=== PATIENT | female | born 1975 | race Caucasian/White ===

== ENCOUNTER 2017-04-07 18:58 | Emergency (ER) | payer BC, MEDICAID, OTHER ==
[2017-04-07 20:00] LABS: INFLUENZA A NEGATIVE (NEGATIVE); INFLUENZA B NEGATIVE (NEGATIVE)
--- NOTE | 2017-04-07 20:06 | Emergency Department Record ---
History of Present Illness - General Chief Complaint: Cough Stated Complaint: COUGH,FEVER Time Seen by Provider: 04/07/17 19:40 Source: Patient Mode of Arrival: Ambulatory Limitations: No limitations - History of Present Illness Initial Comments: pt has productive green cough and is running fevers. pt was expoised to the flu MD Complaint: Cough, Fever, Sore throat Onset/Timin -: Days(s) Severity: Moderate Consistency: Constant Improves With: Nothing Worsens With: Nothing Context: Sick contacts Associated Symptoms: Cough, Fever, Nasal congestion, Sore throat Treatments Prior to Arrival: Acetaminophen - Related Data Previous Rx's Medication Instructions Recorded Azithromycin [Zithromax] 250 mg PO DAILY #4 tab 04/07/17 Allergies Allergy/AdvReac Type Severity Reaction Status Date / Time No Known Drug Allergies Allergy Verified 06/16/15 06:57 Travel Screening - Travel/Exposure Within Last 30 Days Have you traveled within the last 30 days?: No - Travel Symptoms Symptom Screening: None Review of Systems Reviewed: No additional complaints except as noted below Constitutional: Reports: As per HPI. Denies: Chills, Fever, Malaise, Night sweats, Weakness, Weight change Eyes: Reports: As per HPI. Denies: Eye discharge, Eye pain, Photophobia, Vision change ENT: Reports: As per HPI, Congestion. Denies: Dental pain, Ear pain, Epistaxis , Hearing loss, Throat pain Respiratory: Reports: As per HPI, Cough. Denies: Dyspnea, Hemoptysis, Stridor, Wheezes Cardiovascular: Reports: As per HPI. Denies: Arrhythmia, Chest pain, Dyspnea on exertion, Edema, Murmurs, Orthopnea, Palpitations, Paroxysmal nocturnal dyspnea, Rheumatic Fever, Syncope Endocrine: Reports: As per HPI. Denies: Fatigue, Heat or cold intolerance, Polydipsia, Polyuria Gastrointestinal: Reports: As per HPI. Denies: Abdominal pain, Constipation, Diarrhea, Hematemesis, Hematochezia, Melena, Nausea, Vomiting Genitourinary: Reports: As per HPI. Denies: Abnormal menses, Discharge, Dyspareunia, Dysuria, Frequency, Hematuria, Incontinence, Retention, Urgency Musculoskeletal: Reports: As per HPI. Denies: Arthralgia, Back pain, Gout, Joint swelling, Myalgia, Neck pain Skin: Reports: As per HPI. Denies: Bruising, Change in color, Change in hair/ nails, Lesions, Pruritus, Rash Neurological: Reports: As per HPI. Denies: Abnormal gait, Confusion, Headache, Numbness, Paresthesias, Seizure, Tingling, Tremors, Vertigo, Weakness Psychiatric: Reports: As per HPI. Denies: Anxiety, Auditory hallucinations, Depression, Homicidal thoughts, Suicidal thoughts, Visual hallucinations Hematological/Lymphatic: Reports: As per HPI. Denies: Anemia, Blood Clots, Easy bleeding, Easy bruising, Swollen glands Past Medical History - SOCIAL HISTORY Smoking Status: Never smoker Alcohol Use: None Drug Use: None - RESPIRATORY Hx Respiratory Disorders: No - CARDIOVASCULAR Hx Cardio Disorders: No - NEURO Hx Neuro Disorders: No - GI Hx GI Disorders: No - Hx Genitourinary Disorders: No - ENDOCRINE Hx Endocrine Disorders: No - MUSCULOSKELETAL Hx Musculoskeletal Disorders: No - PSYCH Hx Psych Problems: No - HEMATOLOGY/ONCOLOGY Hx Hematology/Oncology Disorders: No Family Medical History Any Significant Family History?: No Physical Exam - General General Appearance: Alert, Oriented x3, Cooperative, Mild distress - Head Head exam: Normal inspection - Eye Eye exam: Normal appearance, PERRL, EOMI Pupils: Normal accommodation - ENT ENT exam: Normal exam, Mucous membranes moist, Normal external ear exam, Normal orophraynx Ear exam: Normal external inspection. negative: External canal tenderness Nasal Exam: Normal inspection. negative: Discharge, Sinus tenderness Mouth exam: Normal external inspection, Tongue normal Teeth exam: Normal inspection. negative: Dental caries Throat exam: Tonsillar erythema. negative: Tonsillar exudate - Neck Neck exam: Normal inspection, Full ROM. negative: Tenderness - Respiratory Respiratory exam: Normal lung sounds bilaterally. negative: Respiratory distress - Cardiovascular Cardiovascular Exam: Regular rate, Normal rhythm, Normal heart sounds - GI/Abdominal GI/Abdominal exam: Soft, Normal bowel sounds. negative: Tenderness - Rectal Rectal exam: Deferred - exam: Deferred - Extremities Extremities exam: Normal inspection, Full ROM, Normal capillary refill. negative: Tenderness - Back Back exam: Reports: Normal inspection, Full ROM. Denies: Muscle spasm, Rash noted, Tenderness - Neurological Neurological exam: Alert, CN II-XII intact, Normal gait, Oriented X3 - Psychiatric Psychiatric exam: Normal affect, Normal mood - Skin Skin exam: Dry, Intact, Normal color, Warm Course Vital Signs 04/07/17 19:08 Temperature 98.6 F Pulse Rate [ 72 Pulse Ox Probe] Respiratory 20 Rate Blood Pressure 140/115 [Right Arm] Pulse Ox 100 Medical Decision Making - Lab Data Lab Results 04/07/17 Range/Units 19:44 Influenza Type A Ag Negative (NEGATIVE) Influenza Type B Ag Negative (NEGATIVE) Disposition Disposition: Discharge Clinical Impression: Bronchitis Disposition: Home, Self-Care Condition: (1) Good Instructions: Acute Bronchitis (ED) Additional Instructions: up with family doctor. return sooner if worse. Prescriptions: Azithromycin [Zithromax] 250 mg PO DAILY #4 tab Forms: Patient Portal Access Quality - Quality Measures Quality Measures: N/A - Blood Pressure Screening Does Patient Have Any of the Following: No Blood Pressure Classification: Hypertensive Reading Systolic Measurement: 154 Diastolic Measurement: 114 Screening for High Blood Pressure: < First Hypertensive BP, F/U Documented > [ G8950] First Hypertensive Follow-up Interventions: Follow-up with rescreen GT 1 day and LT 4 weeks.
[2017-04-07] MEDS ORDERED: AZITHROMYCIN 500 MG in 0.9 % SODIUM CHLORIDE 250ML 250 ML IVPB ONE (20:13)
[2017-04-08] MEDS ORDERED: AZITHROMYCIN 500 MG TABLET PO SCH (10:00)
--- NOTE | 2017-04-08 22:49 | RADIOLOGY REPORT ---
EXAM: CHEST 2 VIEWS HISTORY: DIFFICULTY IN BREATHING. TECHNIQUE: Frontal and lateral views of the chest were performed. FINDINGS: The heart size is normal. Lung reveles are clear. The osseous structures are normal. IMPRESSION: NEGATIVE CHEST EXAMINATION. JOB NUMBER: [id number] MTDD
== END 2017-04-07 20:25 | disposition home or self-care (01) ==
LOC: ER 18:58
DX: J20.9 Acute bronchitis, unspecified (principal)
CPT/HCPCS: 71046; 87400; 99283

== ENCOUNTER 2017-07-30 23:39 | Emergency (ER) | payer OTHER ==
[2017-07-30] MEDS: KETOROLAC 30 MG/ML VIAL IVP ONE (23:59)
[2017-07-30] MEDS: ACETAMINOPHEN 500 MG TABLET PO ONE (23:59)
[2017-07-30] MEDS: DIPHENHYDRAMINE HCL 50 MG/ML VIAL IVP ONE (23:59)
[2017-07-30] MEDS: METOCLOPRAMIDE HCL 10 MG/2 ML VIAL IVP ONE (23:59)
--- NOTE | 2017-07-30 23:59 | Emergency Department Record ---
History of Present Illness - General Chief Complaint: Headache Migraine Stated Complaint: ANDREWS,FEVER,NAUSEA Time Seen by Provider: 07/30/17 23:42 Source: Patient Mode of Arrival: Ambulatory Limitations: No limitations - History of Present Illness Initial Comments: 42 yo female presents to ED for evaluation of headache, body aches, and fever symptoms that began approximately 24 hours ago. Patient denies stiff neck, back pain, flank pain, abdominal pain, or rash symptoms. Patient reports last taking tylenol between 5-6 hours ago. Patient denies health problems at her baseline. MD Complaint: Headache Onset/Timin -: Hour(s) Onset Description: Gradual Location: Diffuse Severity: Moderate Quality: Throbbing Consistency: Constant Improves With: Nothing Worsens With: None Associated Symptoms: Fever, Photophobia Treatments Prior to Arrival: Acetaminophen (6 hours ago) - Related Data Home Medications Medication Instructions Recorded Confirmed Last Taken No Home Med [NO HOME MEDS] 07/30/17 07/30/17 Unknown Allergies Allergy/AdvReac Type Severity Reaction Status Date / Time No Known Drug Allergies Allergy Verified 06/16/15 06:57 Travel Screening - Travel/Exposure Within Last 30 Days Have you traveled within the last 30 days?: No - Travel/Exposure Within Last Year Have you traveled outside the [place] in the last year?: No - Additonal Travel Details Have you been exposed to anyone with a communicable illness?: No - Travel Symptoms Symptom Screening: None Review of Systems Constitutional: Reports: Chills, Fever, Malaise. Denies: Night sweats Eyes: Denies: Eye discharge, Eye pain ENT: Denies: Congestion, Ear pain, Epistaxis Respiratory: Denies: Cough, Dyspnea Cardiovascular: Denies: Chest pain, Dyspnea on exertion Endocrine: Denies: Fatigue, Heat or cold intolerance Gastrointestinal: Denies: Abdominal pain, Nausea, Vomiting Genitourinary: Denies: Incontinence, Retention Musculoskeletal: Denies: Arthralgia, Back pain, Gout, Joint swelling Skin: Denies: Bruising, Change in color Neurological: Reports: Headache. Denies: Abnormal gait, Confusion, Seizure Psychiatric: Denies: Anxiety Hematological/Lymphatic: Denies: Anemia, Blood Clots Past Medical History - SOCIAL HISTORY Smoking Status: Never smoker Alcohol Use: None Drug Use: None - RESPIRATORY Hx Respiratory Disorders: No - CARDIOVASCULAR Hx Cardio Disorders: No - NEURO Hx Neuro Disorders: No - GI Hx GI Disorders: No - Hx Genitourinary Disorders: No - ENDOCRINE Hx Endocrine Disorders: No - MUSCULOSKELETAL Hx Musculoskeletal Disorders: No - PSYCH Hx Psych Problems: No - HEMATOLOGY/ONCOLOGY Hx Hematology/Oncology Disorders: No Family Medical History Any Significant Family History?: No Physical Exam - General General Appearance: Alert, Oriented x3, Cooperative, Moderate distress Limitations: No limitations - Head Head exam: Atraumatic, Normocephalic, Normal inspection Head exam detail: negative: Abrasion, Contusion, Coats's sign, General tenderness, Hematoma, Laceration - Eye Eye exam: Normal appearance. negative: Conjunctival injection, Periorbital swelling, Periorbital tenderness, Scleral icterus - ENT Ear exam: negative: Auricular hematoma, Auricular trauma Nasal Exam: negative: Active bleeding, Discharge, Dried blood, Foreign body Mouth exam: negative: Drooling, Laceration, Muffled voice, Tongue elevation Throat exam: Normal inspection. negative: Tonsillar erythema, Tonsillomegaly, R peritonsillar mass, L peritonsillar mass - Neck Neck exam: Normal inspection. negative: Meningismus, Tenderness - Respiratory Respiratory exam: Normal lung sounds bilaterally. negative: Rales, Respiratory distress, Rhonchi, Stridor - Cardiovascular Cardiovascular Exam: Regular rate, Normal rhythm, Normal heart sounds - GI/Abdominal GI/Abdominal exam: Soft. negative: Rebound, Rigid, Tenderness - Rectal Rectal exam: Deferred - exam: Deferred - Extremities Extremities exam: Normal inspection. negative: Calf tenderness, Pedal edema, Tenderness - Back Back exam: Denies: CVA tenderness (R), CVA tenderness (L) - Neurological Neurological exam: Alert, Normal gait, Oriented X3 - Psychiatric Psychiatric exam: Normal affect, Normal mood - Skin Skin exam: Normal color. negative: Abrasion Type of lesion: negative: abrasion Course Vital Signs 07/30/17 23:44 Temperature 100.4 F H Pulse Rate [ 111 H Pulse Ox Probe] Respiratory 20 Rate Blood Pressure 151/94 [Left Arm] Pulse Ox 100 - Reevaluation(s) Reevaluation #1: 07/30/17 23:57 Patient was seen and examined, no meningeal signs on examination. Patient reports all-over myalgias, headache is likely the result of fever symptoms. Will administer migraine therapy, IVFs, and Tylenol and reassess while also evaluating for the source of the patient's fever symptoms. Patient agrees with the plan of care as discussed. Reevaluation #2: 07/31/17 00:40 Labs reviewed: WBC 18.4 with 88% Neutrophils Glucose 242 AG 18 UA appears negative for infection CXR: No acute process Reevaluation #3: 07/31/17 01:04 Patient was updated on all results thus far and that the source of the patient' s fever is still unidentified. I discussed the indications to perform an LP with symptoms of headache, fever, and unknown source of fever. Following discussion with the patient regarding spinal tap, patient reports that she does not want to undergo the procedure at this time. Risk of , seizure, brain damage, permanent impairment, or worsening of their current condition were discussed as well as the benefit of diagnosing and treating meningitis if present. Patient verbalizes understanding of all risks and benefits, declines the procedure despite these risks. Based on my examination, the patient is alert, oriented, and answers all questions appropriately. Patient appears to have the capacity to make rational decisions based on my examination. Patients family was present for the duration of our discussion as well. Will re-evaluate the patient in 30-45 minutes following migraine therapy administration. Reevaluation #4: 07/31/17 01:32 Patient was reassessed, reports that her headache symptoms are significantly improved (almost gone per patient). Patient continues to decline LP at this time, and reports that she is ready to go home and sleep. Medical Decision Making - Lab Data Result diagrams: 07/30/17 00:13 07/30/17 00:13 Disposition Disposition: Discharge Clinical Impression: Fever Qualifiers: Fever type: unspecified Qualified Code(s): R50.9 - Fever, unspecified Headache Qualifiers: Headache type: unspecified Headache chronicity pattern: acute headache Intractability: not intractable Qualified Code(s): R51 - Headache Disposition: Home, Self-Care Condition: (2) Stable Instructions: Acute Headache (ED) Additional Instructions: Return to ED if your symptoms worsen or if you have any concerns. Tylenol/Motrin as directed. Follow-up with your family doctor in 1-3 days as directed. Forms: Patient Portal Access Time of Disposition: 01:32 Quality - Quality Measures Quality Measures: N/A - Blood Pressure Screening Does Patient Have Any of the Following: No Blood Pressure Classification: Hypertensive Reading Systolic Measurement: 151 Diastolic Measurement: 94 Screening for High Blood Pressure: < First Hypertensive BP, F/U Documented > [ G8950] First Hypertensive Follow-up Interventions: Referral to alternative/primary care provider.
[2017-07-31] MEDS: 0.9 % SODIUM CHLORIDE 1000ML 1,000 ML IV SCH
[2017-07-31 00:20] LABS: BASO % 0.1 % (0-6); EOS % 0.1 % (0-6); HEMATOCRIT 36.6 % (35.0-47.0); HEMOGLOBIN 11.7 gm/dl (11.6-16.0); LYMPH % 6.8 % (16-45); MEAN CELL VOLUME 90.1 fl (81-97); MEAN CORPUSCULAR HEMOGLOBIN 28.8 pg (27-33); MEAN PLATELET VOLUME 8.2 fl (7.4-10.4); MONO % 4.5 % (0-9); PLATELET COUNT 323 K/uL (130-400); RED BLOOD COUNT 4.06 M/uL (3.80-5.40); RED CELL DISTRIBUTION WIDTH 14.3 % (11.5-14.5); WHITE BLOOD COUNT W/O DIFF 18.4 K/uL (4.2-12.2)
[2017-07-31 00:32] LABS: BLOOD UREA NITROGEN 8 mg/dL (6-20); CREATININE 0.9 mg/dL (0.5-0.9); EST GLOMERULAR FILTRATION RATE > 60 mL/min
[2017-07-31 00:35] LABS: GLUCOSE,RANDOM 242 mg/dL (74-109)
[2017-07-31 00:37] LABS: ALT/SGPT 13 U/L (<33); URINE APPEARANCE CLEAR; URINE BILIRUBIN NEGATIVE (NEGATIVE); URINE BLOOD NEGATIVE (NEGATIVE); URINE COLOR YELLOW; URINE KETONE NEGATIVE (NEGATIVE); URINE LEUKOCYTE ESTERASE NEGATIVE (NEGATIVE); URINE NITRITE NEGATIVE (NEGATIVE); URINE PROTEIN NEGATIVE (NEGATIVE); URINE UROBILINOGEN 0.2 E.U./dL (0.20 - 1.00)
[2017-07-31 00:38] LABS: ALB/GLOB RATIO 1.3 (1.1-1.8); ALBUMIN 3.9 g/dL (4.0-5.0); ALKALINE PHOSPHATASE 96 U/L (35-104); AST/SGOT 16 U/L (10.0-35.0)
--- NOTE | 2017-07-31 14:56 | RADIOLOGY REPORT ---
EXAM: CHEST, TWO VIEWS HISTORY: FEVER. TECHNIQUE: Frontal and lateral views of the chest were obtained. Comparison: Prior chest from 04/07/17. FINDINGS: The heart size is normal. The lungs are clear. There is no pneumothorax. IMPRESSION: NEGATIVE CHEST EXAMINATION. JOB NUMBER: [id number] MTDD
== END 2017-07-31 01:42 | disposition home or self-care (01) ==
LOC: ER 23:39
DX: R51 Headache (principal); R50.9 Fever, unspecified; R11.0 Nausea; R73.9 Hyperglycemia, unspecified
CPT/HCPCS: 71046; 80053; 81003; 85027; 96374; 96375; 99284; J1200; J1885; J2765; J7030

== ENCOUNTER 2017-08-01 08:22 | Emergency (ER) | payer SELFPAY ==
[2017-08-01] MEDS ORDERED: KETOROLAC 30 MG/ML VIAL IVP ONE (08:52)
[2017-08-01] MEDS ORDERED: LORAZEPAM 2 MG/ML VIAL IV ONE (08:52)
[2017-08-01] MEDS ORDERED: ASPIRIN 81 MG CHEWABLE TABLET PO ONE (08:53)
[2017-08-01 09:04] LABS: HEMATOCRIT 36.6 % (35.0-47.0); HEMOGLOBIN 11.8 gm/dl (11.6-16.0); MEAN CELL VOLUME 89.3 fl (81-97); MEAN CORPUSCULAR HEMOGLOBIN 28.8 pg (27-33); MEAN CORPUSCULAR HGB CONC 32.2 g/dl (32-36); PLATELET COUNT 335 K/uL (130-400); RED CELL DISTRIBUTION WIDTH 14.5 % (11.5-14.5); WHITE BLOOD COUNT W/O DIFF 12.7 K/uL (4.2-12.2)
[2017-08-01 09:14] LABS: BLOOD UREA NITROGEN 11 mg/dL (6-20); CREATININE 0.8 mg/dL (0.5-0.9); EST GLOMERULAR FILTRATION RATE > 60 mL/min
[2017-08-01 09:17] LABS: GLUCOSE,RANDOM 166 mg/dL (74-109)
[2017-08-01 09:19] LABS: PLATELET ESTIMATE NORMAL (NORMAL)
--- NOTE | 2017-08-01 09:41 | Emergency Department Record ---
History of Present Illness - General Chief Complaint: Chest Pain Stated Complaint: CHEST DISCOMFORT Time Seen by Provider: 08/01/17 08:42 Mode of Arrival: Ambulatory - History of Present Illness Initial Comments: sharp left sided chest pain and a cough and congestion and her for a migraine couple weeks ago and no nausea or vomiting. Onset/Timin -: Hour(s) Onset: Awoke with symptoms Pain Location: Left chest Severity: Severe Severity scale (1-10): 8 Quality: Sharp Consistency: Constant Improves With: Nothing Worsens With: Nothing Anginal Symptoms: Nausea - Related Data Previous Rx's Medication Instructions Recorded Azithromycin 250 mg PO DAILY #6 tablet 08/01/17 Naproxen [Naprosyn] 500 mg PO BID #20 tablet 08/01/17 Allergies Allergy/AdvReac Type Severity Reaction Status Date / Time No Known Drug Allergies Allergy Verified 08/01/17 08:30 Travel Screening - Travel/Exposure Within Last 30 Days Have you traveled within the last 30 days?: No Review of Systems Reviewed: No additional complaints except as noted below Constitutional: Reports: As per HPI. Denies: Chills, Fever, Malaise, Night sweats, Weakness, Weight change Eyes: Reports: As per HPI. Denies: Eye discharge, Eye pain, Photophobia, Vision change ENT: Reports: As per HPI. Denies: Congestion, Dental pain, Ear pain, Epistaxis , Hearing loss, Throat pain Respiratory: Reports: As per HPI. Denies: Cough, Dyspnea, Hemoptysis, Stridor, Wheezes Cardiovascular: Reports: As per HPI. Denies: Arrhythmia, Chest pain, Dyspnea on exertion, Edema, Murmurs, Orthopnea, Palpitations, Paroxysmal nocturnal dyspnea, Rheumatic Fever, Syncope Endocrine: Reports: As per HPI. Denies: Fatigue, Heat or cold intolerance, Polydipsia, Polyuria Gastrointestinal: Reports: As per HPI. Denies: Abdominal pain, Constipation, Diarrhea, Hematemesis, Hematochezia, Melena, Nausea, Vomiting Genitourinary: Reports: As per HPI. Denies: Abnormal menses, Discharge, Dyspareunia, Dysuria, Frequency, Hematuria, Incontinence, Retention, Urgency Musculoskeletal: Reports: As per HPI. Denies: Arthralgia, Back pain, Gout, Joint swelling, Myalgia, Neck pain Skin: Reports: As per HPI. Denies: Bruising, Change in color, Change in hair/ nails, Lesions, Pruritus, Rash Neurological: Reports: As per HPI. Denies: Abnormal gait, Confusion, Headache, Numbness, Paresthesias, Seizure, Tingling, Tremors, Vertigo, Weakness Psychiatric: Reports: As per HPI. Denies: Anxiety, Auditory hallucinations, Depression, Homicidal thoughts, Suicidal thoughts, Visual hallucinations Hematological/Lymphatic: Reports: As per HPI. Denies: Anemia, Blood Clots, Easy bleeding, Easy bruising, Swollen glands Past Medical History - SOCIAL HISTORY Smoking Status: Never smoker Alcohol Use: None Drug Use: None - RESPIRATORY Hx Respiratory Disorders: No - CARDIOVASCULAR Hx Cardio Disorders: No - NEURO Hx Neuro Disorders: No - GI Hx GI Disorders: No - Hx Genitourinary Disorders: No - ENDOCRINE Hx Endocrine Disorders: No - MUSCULOSKELETAL Hx Musculoskeletal Disorders: No - PSYCH Hx Psych Problems: No - HEMATOLOGY/ONCOLOGY Hx Hematology/Oncology Disorders: No Family Medical History Any Significant Family History?: No Physical Exam - General General Appearance: Alert, Oriented x3, Cooperative, Mild distress - Head Head exam: Normal inspection - Eye Eye exam: Normal appearance, PERRL Pupils: Normal accommodation - ENT ENT exam: Normal exam, Mucous membranes moist, Normal external ear exam, Normal orophraynx, TM's normal bilaterally Ear exam: Normal external inspection. negative: External canal tenderness Nasal Exam: Normal inspection. negative: Discharge, Sinus tenderness Mouth exam: Normal external inspection, Tongue normal Teeth exam: Normal inspection. negative: Dental caries Throat exam: Normal inspection. negative: Tonsillar erythema, Tonsillar exudate - Neck Neck exam: Normal inspection, Full ROM. negative: Tenderness - Respiratory Respiratory exam: Normal lung sounds bilaterally. negative: Respiratory distress - Cardiovascular Cardiovascular Exam: Regular rate, Normal rhythm, Normal heart sounds, Other ( chest pain worse with palpation and coughing) - GI/Abdominal GI/Abdominal exam: Soft, Normal bowel sounds. negative: Tenderness - Rectal Rectal exam: Deferred - exam: Deferred - Extremities Extremities exam: Normal inspection, Full ROM, Normal capillary refill. negative: Tenderness - Back Back exam: Reports: Normal inspection, Full ROM. Denies: Muscle spasm, Rash noted, Tenderness - Neurological Neurological exam: Alert, Normal gait, Oriented X3, Reflexes normal - Psychiatric Psychiatric exam: Normal affect, Normal mood - Skin Skin exam: Dry, Intact, Normal color, Warm Course Vital Signs 06/20/18 08:26 Temperature 98.3 F Pulse Rate 106 H Respiratory 20 Rate Blood Pressure 104/68 Pulse Ox 100 Medical Decision Making - Data Complexity MDM Data: Labs Ordered and/or Reviewed (wbc 12,700, potassium 3.1 trop neg) - Lab Data Result diagrams: 08/01/17 08:30 08/01/17 08:30 Lab Results 08/01/17 08/01/17 Range/Units 08:30 08:30 WBC 12.7 H (4.2-12.2) K/uL RBC 4.10 (3.80-5.40) M/uL Hgb 11.8 (11.6-16.0) gm/dl Hct 36.6 (35.0-47.0) % MCV 89.3 (81-97) fl MCH 28.8 (27-33) pg MCHC 32.2 (32-36) g/dl RDW 14.5 (11.5-14.5) % Plt Count 335 (130-400) K/uL MPV 9.0 (7.4-10.4) fl Neutrophils % 85.0 H (47-80) % Eosinophils % Not Reportable Basophils % Not Reportable Lymphocytes 13.0 L (16-45) % Monocytes 2.0 (0-9) % Platelet Estimate Normal (NORMAL) RBC Morphology Normal Sodium 143 (136-145) mmol/L Potassium 3.1 L (3.4-4.5) mmol/L Chloride 100 (98-107) mmol/L Carbon Dioxide 16.0 L (22-29) mmol/L Anion Gap 27.0 H (7-16) BUN 11 (6-20) mg/dL Creatinine 0.8 (0.5-0.9) mg/dL Estimated GFR > 60 mL/min Random Glucose 166 H (74-109) mg/dL Calcium 8.7 (8.6-10.0) mg/dL Troponin T < 0.010 (0-0.010) ng/mL Disposition Clinical Impression: Chest wall pain, Bronchitis Disposition: Home, Self-Care Condition: (1) Good Instructions: Chest Wall Pain (ED), Acute Bronchitis (ED) Additional Instructions: follow up with a family Dr in one week and if worse return to the ED eat a banana a day for one week Prescriptions: Azithromycin 250 mg PO DAILY #6 tablet Naproxen [Naprosyn] 500 mg PO BID #20 tablet Time of Disposition: 09:42 Quality - Quality Measures Quality Measures: N/A - Blood Pressure Screening Does Patient Have Any of the Following: No Blood Pressure Classification: Normal BP Reading Systolic Measurement: 104 Diastolic Measurement: 68 Screening for High Blood Pressure: < Normal BP, F/U Not Required > [G8783]
--- NOTE | 2017-08-02 14:28 | RADIOLOGY REPORT ---
EXAM: CHEST, TWO VIEWS HISTORY: DIFFICULTY BREATHING. TECHNIQUE: Frontal and lateral views of the chest were obtained. Comparison: Prior chest from 07/31/17. FINDINGS: The heart size is normal. The lungs are clear. There is no pneumothorax. IMPRESSION: NEGATIVE CHEST EXAMINATION. JOB NUMBER: [id number] MTDD
== END 2017-08-01 10:13 | disposition home or self-care (01) ==
LOC: ER 08:22
DX: J20.9 Acute bronchitis, unspecified (principal); R07.89 Other chest pain; R06.00 Dyspnea, unspecified; R11.0 Nausea
CPT/HCPCS: 99284 ×2; 96374; 96375; 80048; 84484; 85027; 71046; 93005; 93010; J1885; J2060